=== PATIENT | female | born 1935 | race Caucasian/White ===

== ENCOUNTER 2020-04-07 20:37 | Emergency (ER) | payer OTHER ==
[~2020-04-07] VITALS: Ht 167.6 cm; Wt 90.7 kg
[~2020-04-07 20:37] MED LIST: DIGO0.1262 PO; FURO40TA4 PO; GABA-339 PO; GLIP10TA9 PO; INSLANTI SC; METO25TA5 PO; WARF5TAB71 PO
[2020-04-07] MEDS ORDERED: fentaNYL CITRATE 5 ML ONE (22:00)
[2020-04-07] MEDS ORDERED: fentaNYL CITRATE 100 MCG/2 ML VL IV ONE (22:15)
[2020-04-08 00:42] VITALS: BP 157/118
[2020-04-08] MEDS ORDERED: fentaNYL CITRATE 100 MCG/2 ML VL IV ONE (00:45)
== END 2020-04-08 00:52 | disposition short-term general hospital (02) ==
LOC: EDBD 20:37 → ER 20:37
DX: S12.300A Unspecified displaced fracture of fourth cervical vertebra, initial encounter for closed fracture (principal); G89.28 Other chronic postprocedural pain; W18.31XA Fall on same level due to stepping on an object, initial encounter; Y93.01 Activity, walking, marching and hiking; Y92.89 Other specified places as the place of occurrence of the external cause; Y99.8 Other external cause status
CPT/HCPCS: 70450; 72125; 72128; 72131; 93005; 96374; 96376; 99285; J3010